=== PATIENT | male | born 1980 | race American Indian/Alaskan Native ===

== ENCOUNTER 2017-12-14 15:47 | Emergency (ER) | payer SELFPAY ==
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
--- NOTE | 2017-12-14 16:32 | CR ---
Clinic history: 37-year-old male with low back pain. Interpretation: *Abnormal appearance L5-S1 facet joint on the right and relative narrowing of the low est free L5-S1 interspace. Hypertrophic marginal arthritic spur formation around the T9-10, T11-12 and L3-4 levels (mild breanna emily T10 vertebral body). No sign of pathologic skeletal lesion, other lumbar fracture, spondylolisthesis or proximal intervert ebral disc space narrowing. Symmetric spacing normal-appearing SI and hip joints. CONCLUSION: Subtle levorotoscoliosis and abnormal appearance posterior articulating facets L5-S1 leve l, on the right. Intervertebral disc space narrowing T11-12, L3-4, and L5-S1 levels. Disc disease? Hypertrophic arthr itis noted incidentally.
[2017-12-14] MEDS ORDERED: Ketorolac 30 MG/ML SDV IM ONE (17:01)
[2017-12-14 17:35] VITALS: BP 129/75
== END 2017-12-14 17:29 | disposition home or self-care (01) ==
LOC: DL.ED 15:47
DX: M54.5 Low back pain (principal); F17.210 Nicotine dependence, cigarettes, uncomplicated
CPT/HCPCS: 72100; 99283; J1885; J2360

== ENCOUNTER 2018-04-25 14:50 | Emergency (ER) | payer OTHER ==
--- NOTE | 2018-04-25 15:14 | EDM.PDOC ---
ED HPI GENERAL MEDICAL PROBLEM - General Chief Complaint: Skin Complaint Stated Complaint: [id number] BOIL ON LT WRIST Time Seen by Provider: 04/25/18 15:14 Source of Information: Reports: Patient, Old Records, RN, RN Notes Reviewed History Limitations: Reports: No Limitations - History of Present Illness INITIAL COMMENTS - FREE TEXT/NARRATIVE: C/O abscess or boil on the left wrist. Pt reports onset of a tender, red bump several days ago after he was scratched or poked by something while cleaning out a basement. The area has progressively become more swollen, hot, and has redness spreading down the hand and up the arm. Pt reports feeling feverish yesterday, but did not measure his temperature. Denies pain or enlarged lymph node(s) in axilla. Duration: Constant, Getting Worse Location: Reports: Upper Extremity, Left Quality: Reports: Ache, Pressure Severity: Severe Improves with: Reports: None Worsens with: Reports: Movement (or palpation) Associated Symptoms: Reports: No Other Symptoms Left Wrist Pain Score (Numeric/FACES): 10 - Related Data Allergies Allergy/AdvReac Type Severity Reaction Status Date / Time No Known Allergies Allergy Verified 04/25/18 15:00 Home Meds: Home Meds . [No Known Home Meds] 02/29/16 [History] Past Medical History - Past Health History Medical/Surgical History: Denies Medical/Surgical History HEENT History: Reports: None Cardiovascular History: Reports: None Respiratory History: Reports: None Gastrointestinal History: Reports: None Genitourinary History: Reports: None Musculoskeletal History: Reports: None Neurological History: Reports: None Psychiatric History: Reports: None Endocrine/Metabolic History: Reports: None Hematologic History: Reports: None Immunologic History: Reports: None Oncologic (Cancer) History: Reports: None Dermatologic History: Reports: None - Infectious Disease History Infectious Disease History: Reports: Chicken Pox - Past Surgical History Head Surgeries/Procedures: Reports: None Social & Family History - Family History Family Medical History: Noncontributory - Tobacco Use Smoking Status *Q: Current Every Day Smoker Years of Tobacco use: 2 Packs/Tins Daily: 0.5 Second Hand Smoke Exposure: No - Caffeine Use Caffeine Use: Reports: Coffee, Soda, Tea - Recreational Drug Use Recreational Drug Use: No - Living Situation & Occupation Living situation: Reports: with Family ED ROS GENERAL - Review of Systems Review Of Systems: ROS reveals no pertinent complaints other than HPI. ED EXAM, SKIN/RASH Exam: See Below Exam Limited By: No Limitations General Appearance: Alert, WD/WN, No Apparent Distress Nose: Normal Inspection Throat/Mouth: Normal Inspection, Normal Lips, Normal Oropharynx, Normal Voice, No Airway Compromise Head: Atraumatic, Normocephalic Neck: Normal Inspection, Supple, Non-Tender, Full Range of Motion. No: Lymphadenopathy (L), Lymphadenopathy (R) Respiratory/Chest: No Respiratory Distress, Lungs Clear, Normal Breath Sounds, No Accessory Muscle Use, Chest Non-Tender Cardiovascular: Regular Rate, Rhythm Extremities: Normal Capillary Refill, Arm Pain (3cm diameter raised, acutely tender, fluctuant, non-draining abscess to left radial wrist with erythema 4.5cm distally onto dorsal hand, and 8cm proximally up the forearm), Increased Warmth (left wrist), Redness (left forearm and left dorsal hand) Neurological: Alert, Oriented, CN II-XII Intact, Normal Cognition, No Motor/ Sensory Deficits Psychiatric: Anxious ED SKIN PROCEDURES - I&D Site: left wrist Skin Prep: Chlorhexidine (Hibiciens), Saline Local Anesthesia: Lidocaine: 1% Plain Local Anesthetic Volume: Other (15cc) Area Incised With: 11 Blade Drainage: Purulent, Bloody, Large Amount Probed to Break Up Loculations: Yes Packed With: 1/4 in. Iodoform Sterile Dressinx4(s) Complications: No Course - Vital Signs Last Recorded V/S: Last Vital Signs Temp 36.0 C 04/25/18 14:55 Pulse 93 04/25/18 14:55 Resp 16 04/25/18 14:55 BP 135/73 04/25/18 14:55 Pulse Ox 100 04/25/18 14:55 - Orders/Labs/Meds Orders: Active Orders 24 hr Category Date Time Status Peripheral IV Care [RC] . DIRECTED Care 04/25/18 15:18 Active CULTURE WOUND + SMEAR [RM] Stat Lab 04/25/18 15:17 Ordered Sodium Chloride 0.9% [Saline Flush] Med 04/25/18 15:17 Active 10 ml FLUSH ASDIRECTED PRN Peripheral IV Insertion Adult [OM.PC] Stat Oth 04/25/18 15:17 Ordered Medication Orders Sodium Chloride (Saline Flush) 10 ml FLUSH ASDIRECTED PRN PRN Reason: Keep Vein Open Last Admin: 04/25/18 15:46 Dose: 10 ml Admin: 04/25/18 15:29 Dose: 10 ml Labs: Laboratory Tests 04/25/18 04/25/18 Range/Units 15:28 15:28 WBC 10.5 H (5.0-10.0) 10^3/uL RBC 4.77 (4.6-6.2) 10^6/uL Hgb 14.1 (14.0-18.0) g/dL Hct 41.7 (40.0-54.0) % MCV 87.4 (80-100) fL MCH 29.6 (27.0-34.0) pg MCHC 33.8 (33.0-35.0) g/dL Plt Count 248 (150-450) 10^3/uL Neut % (Auto) 69.1 (42.2-75.2) % Lymph % (Auto) 22.4 (20.5-50.1) % [place] % (Auto) 7.0 (2-8) % Eos % (Auto) 1.1 (1.0-3.0) % Baso % (Auto) 0.4 (0.0-1.0) % C-Reactive Protein 4.3 H (0.0-1.3) mg/dL Meds: Medications Generic Name Dose Route Start Last Admin Trade Name Leydi PRN Reason Stop Dose Admin Sodium Chloride 10 ml 04/25/18 15:17 04/25/18 15:46 Saline Flush FLUSH 10 ml ASDIRECTED PRN Administration Keep Vein Open Discontinued Medications Generic Name Dose Route Start Last Admin Trade Name Leydi PRN Reason Stop Dose Admin Diphenhydramine HCl 25 mg 04/25/18 15:19 04/25/18 15:30 Benadryl IVPUSH 04/25/18 15:20 25 mg ONETIME ONE Administration Ketorolac Tromethamine 30 mg 04/25/18 15:20 04/25/18 15:30 Toradol IVPUSH 04/25/18 15:21 30 mg ONETIME ONE Administration Lidocaine HCl 30 ml 04/25/18 15:18 04/25/18 15:30 Xylocaine-Mpf 1% INJECT 04/25/18 15:19 30 ml ONETIME ONE Administration Vancomycin HCl 1,500 mg 06/06/18 15:19 04/25/18 15:42 Vancomycin IV 04/25/18 15:20 1,500 mg ONETIME ONE Administration Departure - Departure Time of Disposition: 17:35 Disposition: Home, Self-Care 01 Condition: Good Clinical Impression: Abscess of left forearm, Cellulitis of left upper extremity - Discharge Information Instructions: Skin Abscess, [id number], Cellulitis, Adult, [id number], Incision and Drainage, Care After Referrals: PCP,None [Primary Care Provider] - Forms: ED Department Discharge Additional Instructions: Rx: Clindamycin 300mg Rx: Doxycycline 100mg Rx: Bactroban Ointment 2% Rx: Tylenol Codeine No. 3 *Do not drive or work while under the influence of this medication. Follow up in clinic in 1 to 2 days for recheck. - My Orders Last 24 Hours: My Active Orders 04/25/18 15:17 CULTURE WOUND + SMEAR [RM] Stat Sodium Chloride 0.9% [Saline Flush] 10 ml FLUSH ASDIRECTED PRN Peripheral IV Insertion Adult [OM.PC] Stat 04/25/18 15:18 Peripheral IV Care [RC] . DIRECTED - Assessment/Plan Last 24 Hours: My Active Orders 04/25/18 15:17 CULTURE WOUND + SMEAR [RM] Stat Sodium Chloride 0.9% [Saline Flush] 10 ml FLUSH ASDIRECTED PRN Peripheral IV Insertion Adult [OM.PC] Stat 04/25/18 15:18 Peripheral IV Care [RC] . DIRECTED
[2018-04-25] MEDS ORDERED: Lidocaine 1% 30 ML SDV INJECT ONE (15:18)
[2018-04-25] MEDS ORDERED: Vancomycin 500 MG SDV IV ONE (15:19)
[2018-04-25] MEDS ORDERED: diphenhydrAMINE 50 MG/ML SDV IVPUSH ONE (15:19)
[2018-04-25] MEDS ORDERED: Ketorolac 30 MG/ML SDV IVPUSH ONE (15:20)
[2018-04-25] MEDS: Sodium Chloride 0.9% 10 ML Syringe FLUSH PRN ×2 (15:29→15:46)
[2018-04-25 17:44] VITALS: BP 108/63
== END 2018-04-25 17:58 | disposition home or self-care (01) ==
LOC: DL.ED 14:50
DX: L02.414 Cutaneous abscess of left upper limb (principal); L03.114 Cellulitis of left upper limb; F17.210 Nicotine dependence, cigarettes, uncomplicated
CPT/HCPCS: 10060; 36415; 85025; 86140; 87070; 87077; 87186; 87205; 96365; 96366; 96375; 99283; J1200; J1885; J3370; J7050

== ENCOUNTER 2020-01-14 20:15 | Emergency (ER) | payer SELFPAY ==
[2020-01-14] MEDS ORDERED: Midazolam 1 MG/ML 2 ML SDV ONE (20:38)
[2020-01-14] MEDS ORDERED: Succinylcholine 200 MG/10 ML MDV IV STA (20:38)
[2020-01-14] MEDS ORDERED: Midazolam 1 MG/ML 2 ML SDV IVPUSH ONE (20:38)
[2020-01-14] MEDS ORDERED: Etomidate 2 MG/ML 20 ML SDV IVPUSH ONE (20:38)
[2020-01-14] MEDS ORDERED: Propofol 200 MG/20 ML SDV IVPUSH ONE (20:42)
[2020-01-14] MEDS ORDERED: propofoL 100 ML IV SCH (20:42)
[2020-01-14] MEDS ORDERED: Sodium Chloride 0.9% 10 ML Syringe FLUSH PRN (20:42)
[2020-01-14] MEDS ORDERED: Rocuronium 50 MG/5 ML Vial IVPUSH ONE (20:45)
[2020-01-14 20:58] VITALS: BP 124/80; PULSE 100
[2020-01-14] MEDS ORDERED: Lactated Ringers 1,000 ML IV ONE (21:02)
[2020-01-14 21:04] LABS: ANION GAP 12.5; CHLORIDE,CL 106 mmol/L (101-111); SODIUM,NA 136 mmol/L (135-145)
[2020-01-14 21:08] LABS: ACETAMINOPHEN < 10.0 ug/mL
[2020-01-14 21:09] LABS: BASE EXCESS ARTERIAL -4 mmol/L ((-2)-(+3)); BICARBONATE,ARTERIAL 22.5 mmol/L (22-26); O2 DELIVERY DEVICE VENTILATOR; O2 SATURATION ARTERIAL 98 % (95-100); PCO2 ARTERIAL 47 mmHg (35-45); PO2 ARTERIAL 113 mmHg (70-100)
[2020-01-14 21:10] LABS: ALLEN TEST PERFORMED
--- NOTE | 2020-01-14 21:10 | EDM.PDOC ---
ED HPI GENERAL MEDICAL PROBLEM - General Chief Complaint: Drug or Alcohol Abuse Stated Complaint: UNKNOWN-AMBULANCE Time Seen by Provider: 01/14/20 20:15 Source of Information: Reports: EMS - History of Present Illness INITIAL COMMENTS - FREE TEXT/NARRATIVE: she comes emergency department today by ambulance from home with a polysubstance overdose. Per the ambulance report the patient had taken his his medications at home and attempt to kill himself. The patient was alert upon arrival. Patient told EMS that he had taken his "medications" in an attempt to kill himself. The medications were obtained from the home to include quetiapine hydroxyzine tramadol Wellbutrin Suboxone. Shortly after EMS arrival the patient went unresponsive and had depressed respiratory effort. He was given 4 mg of Narcan without any improvement. He had minimal respiratory effort and had assisted respiratory ventilation in route to the hospital. He was hypoxic for a short period of time in the mid 80s until the oxygen was applied. He had never vomited. Rest of the history of present illness is unable to obtain as the patient is unresponsive upon arrival. - Related Data Allergies Allergy/AdvReac Type Severity Reaction Status Date / Time No Known Allergies Allergy Verified 01/14/20 21:05 Home Meds: Home Meds . [Unable to Verify Home Med List] 01/14/20 [History] Past Medical History - Past Health History Medical/Surgical History: Denies Medical/Surgical History HEENT History: Reports: None Cardiovascular History: Reports: None Respiratory History: Reports: None Gastrointestinal History: Reports: None Genitourinary History: Reports: None Musculoskeletal History: Reports: None Neurological History: Reports: None Psychiatric History: Reports: None Endocrine/Metabolic History: Reports: None Hematologic History: Reports: None Immunologic History: Reports: None Oncologic (Cancer) History: Reports: None Dermatologic History: Reports: None - Infectious Disease History Infectious Disease History: Reports: Chicken Pox - Past Surgical History Head Surgeries/Procedures: Reports: None Social & Family History - Family History Family Medical History: Noncontributory - Caffeine Use Caffeine Use: Reports: Coffee, Soda, Tea - Living Situation & Occupation Living situation: Reports: with Family ED ROS GENERAL - Review of Systems Review Of Systems: Unable To Obtain Reason Not Obtained: Unresponsive on arrival - Physical Exam Exam: See Below Exam Limited By: Altered Mental Status General Appearance: Lethargic, Obtunded Eye Exam: Bilateral Eye: Normal Inspection, Other (Pupils pinpoint sluggish bilaterally) Ears: Normal External Exam, Normal Canal Nose: Normal Inspection Throat/Mouth: Normal Inspection, Normal Lips Head Exam: Atraumatic, Normocephalic Neck: Normal Inspection, Supple, Non-Tender Respiratory/Chest: No Respiratory Distress, Lungs Clear, Other (Minnimal respiratory effort at aprox 3-4 breaths per minutes shallow no snoring respirations although assisted ventilation in effect upon arrival. ) Cardiovascular: Normal Peripheral Pulses, Regular Rate, Rhythm GI/Abdominal: Normal Bowel Sounds, Soft Neuro Exam (Abbreviated): Unresponsive Back Exam: Normal Inspection Extremities: Normal Inspection, Normal Capillary Refill Skin Exam: Intact, Normal Color, Diaphoretic Endotracheal Intubation - Endotracheal Intubation Time of Intubation: 20:20 ET Intubation Indication: Respiratory Failure, Airway Protection Preparation: Suction, Balloon Tested, BVM Set Up, Difficult Airway Equip Airway Assessment: Profuse Secretions Pre-Oxygenation: Assisted with BVM, 100% FiO2 Anesthesia Meds: Etomidate, Succinylcholine Placement: Orotracheal Cords Visualized: Yes ETT Size In mm: 7.5 Number of Attempts: 1 Confirmed By: CO2 Indicator, Bilateral Breath Sounds, Chest Xray Tube Secured By: By Provider Endotracheal Intubation Comment: Intubated without difficulty with direct visualization of the Et tube through the cords. Positive lung sounds bilaterally no epigastric sounds. EKG INTERPRETATION EKG Date: 01/14/20 Time: 20:55 Rhythm: NSR Rate (Beats/Min): 87 [place]: Normal P-Wave: Present QRS: Normal ST-T: Normal QT: Normal Comparison: NA - No Prior EKG Course - Vital Signs Last Recorded V/S: Last Vital Signs Temp 35.9 C L 01/14/20 20:15 Pulse 100 01/14/20 20:15 Resp 20 01/14/20 20:15 BP 124/80 01/14/20 20:15 Pulse Ox 98 01/14/20 20:15 - Orders/Labs/Meds Orders: Active Orders 24 hr Category Date Time Status EKG 12 Lead [EKG Documentation Completion] [RC] URGENT Care 01/14/20 20:42 Active Insert Urinary Catheter [OM.PC] Q24H Care 01/14/20 20:45 Ordered Peripheral IV Care [RC] . DIRECTED Care 01/14/20 20:42 Active RASS Sedation Scale [RC] ASDIRECTED Care 01/14/20 21:35 Active Urinary Catheter Assessment [RC] ASDIRECTED Care 01/14/20 20:39 Active Chest 1V Frontal [CR] Urgent Exams 01/14/20 20:38 Taken Desired Level of Sedation (RASS) [AST] Click To Edit Ot 01/14/20 21:35 Ordered NG [Nasogastric Orogastric Tube Insertion] [OM.PC] Ot 01/14/20 20:38 Ordered Routine Peripheral IV Insertion Adult [OM.PC] Stat Ot 01/14/20 20:42 Ordered Labs: Laboratory Tests 01/14/20 01/14/20 01/14/20 Range/Units 20:37 20:37 20:37 WBC 9.4 (5.0-10.0) 10^3/uL RBC 5.00 (4.6-6.2) 10^6/uL Hgb 15.4 (14.0-18.0) g/dL Hct 44.4 (40.0-54.0) % MCV 88.8 (80-100) fL MCH 30.8 (27.0-34.0) pg MCHC 34.7 (33.0-35.0) g/dL Plt Count 215 (150-450) 10^3/uL Neut % (Auto) 54.9 (42.2-75.2) % Lymph % (Auto) 35.9 (20.5-50.1) % [place] % (Auto) 7.4 (2-8) % Eos % (Auto) 1.5 (1.0-3.0) % Baso % (Auto) 0.3 (0.0-1.0) % ABG pH (7.35-7.45) ABG pCO2 (35-45) mmHg ABG pO2 (70-100) mmHg ABG HCO3 (22-26) mmol/L ABG O2 Saturation (95-100) % ABG Base Excess ((-2)-(+3)) mmol/L Jonnie Test O2 Delivery Device Sodium 136 (135-145) mmol/L Potassium 3.5 L (3.6-5.0) mmol/L Chloride 106 (101-111) mmol/L Carbon Dioxide 21.0 (21.0-31.0) mmol/L Anion Gap 12.5 BUN 15 (7-18) mg/dL Creatinine 0.8 (0.6-1.3) mg/dL Est Cr Clr Drug Dosing 137.42 mL/min Estimated GFR (MDRD) > 60 BUN/Creatinine Ratio 18.75 Glucose 109 H (74-105) mg/dL Lactic Acid 1.8 (0.5-2.0) mmol/L Calcium 8.3 L (8.4-10.2) mg/dl Total Bilirubin 0.5 (0.2-1.0) mg/dL AST 37 (10-42) IU/L ALT 64 H (10-60) IU/L Alkaline Phosphatase 59 (42-121) IU/L Total Protein 7.2 (6.7-8.2) g/dl Albumin 3.9 (3.2-5.5) g/dl Globulin 3.3 Albumin/Globulin Ratio 1.18 Urine Color (YELLOW) Urine Appearance (CLEAR) Urine pH (5.0-9.0) Ur Specific [place] (1.005-1.030) Urine Protein (NEGATIVE) Urine Glucose (UA) (NEGATIVE) Urine Ketones (NEGATIVE) Urine Occult Blood (NEGATIVE) Urine Nitrite (NEGATIVE) Urine Bilirubin (NEGATIVE) Urine Urobilinogen (0.2-1.0) mg/dL Ur Leukocyte Esterase (NEGATIVE) Salicylates < 4.0 mg/dL Urine Opiates Screen (NEGATIVE) Ur Oxycodone Screen (NEGATIVE) Urine Methadone Screen (NEGATIVE) Acetaminophen < 10.0 ug/mL Ur Barbiturates Screen (NEGATIVE) U Tricyclic Antidepress (NEGATIVE) Ur Phencyclidine Scrn (NEGATIVE) Ur Amphetamine Screen (NEGATIVE) U Methamphetamines Scrn (NEGATIVE) Urine MDMA Screen (NEGATIVE) U Benzodiazepines Scrn (NEGATIVE) Urine Cocaine Screen (NEGATIVE) U Marijuana (THC) Screen (NEGATIVE) Ethyl Alcohol 162 mg/dL 01/14/20 01/14/20 01/14/20 Range/Units 20:50 20:50 21:05 WBC (5.0-10.0) 10^3/uL RBC (4.6-6.2) 10^6/uL Hgb (14.0-18.0) g/dL Hct (40.0-54.0) % MCV (80-100) fL MCH (27.0-34.0) pg MCHC (33.0-35.0) g/dL Plt Count (150-450) 10^3/uL Neut % (Auto) (42.2-75.2) % Lymph % (Auto) (20.5-50.1) % [place] % (Auto) (2-8) % Eos % (Auto) (1.0-3.0) % Baso % (Auto) (0.0-1.0) % ABG pH 7.31 L (7.35-7.45) ABG pCO2 47 H (35-45) mmHg ABG pO2 113 H (70-100) mmHg ABG HCO3 22.5 (22-26) mmol/L ABG O2 Saturation 98 (95-100) % ABG Base Excess -4 L ((-2)-(+3)) mmol/L Jonnie Test Performed O2 Delivery Device Ventilator Sodium (135-145) mmol/L Potassium (3.6-5.0) mmol/L Chloride (101-111) mmol/L Carbon Dioxide (21.0-31.0) mmol/L Anion Gap BUN (7-18) mg/dL Creatinine (0.6-1.3) mg/dL Est Cr Clr Drug Dosing mL/min Estimated GFR (MDRD) BUN/Creatinine Ratio Glucose (74-105) mg/dL Lactic Acid (0.5-2.0) mmol/L Calcium (8.4-10.2) mg/dl Total Bilirubin (0.2-1.0) mg/dL AST (10-42) IU/L ALT (10-60) IU/L Alkaline Phosphatase (42-121) IU/L Total Protein (6.7-8.2) g/dl Albumin (3.2-5.5) g/dl Globulin Albumin/Globulin Ratio Urine Color Yellow (YELLOW) Urine Appearance Clear (CLEAR) Urine pH 5.5 (5.0-9.0) Ur Specific [place] >= 1.030 (1.005-1.030) Urine Protein Negative (NEGATIVE) Urine Glucose (UA) Negative (NEGATIVE) Urine Ketones Negative (NEGATIVE) Urine Occult Blood Negative (NEGATIVE) Urine Nitrite Negative (NEGATIVE) Urine Bilirubin Negative (NEGATIVE) Urine Urobilinogen 0.2 (0.2-1.0) mg/dL Ur Leukocyte Esterase Negative (NEGATIVE) Salicylates mg/dL Urine Opiates Screen Positive H (NEGATIVE) Ur Oxycodone Screen Positive H (NEGATIVE) Urine Methadone Screen Negative (NEGATIVE) Acetaminophen ug/mL Ur Barbiturates Screen Negative (NEGATIVE) U Tricyclic Antidepress Negative (NEGATIVE) Ur Phencyclidine Scrn Negative (NEGATIVE) Ur Amphetamine Screen Negative (NEGATIVE) U Methamphetamines Scrn Negative (NEGATIVE) Urine MDMA Screen Negative (NEGATIVE) U Benzodiazepines Scrn Negative (NEGATIVE) Urine Cocaine Screen Negative (NEGATIVE) U Marijuana (THC) Screen Negative (NEGATIVE) Ethyl Alcohol mg/dL Meds: Medications Discontinued Medications Generic Name Dose Route Start Last Admin Trade Name Freq PRN Reason Stop Dose Admin Etomidate 20 mg 01/14/20 20:38 01/14/20 20:30 Amidate IVPUSH 01/14/20 20:39 20 mg ONETIME ONE Administration Fentanyl Confirm 01/14/20 21:26 01/14/20 21:32 Sublimaze Administered 01/14/20 21:27 Not Given Dose 100 mcg .ROUTE .STK-MED ONE Fentanyl 100 mcg 01/14/20 21:32 01/14/20 21:33 Sublimaze IVPUSH 01/14/20 21:33 100 mcg ONETIME ONE Administration Lactated Ringer's 1,000 mls @ 1,000 mls/hr 01/14/20 21:02 01/14/20 21:31 Ringers, Lactated IV 01/14/20 22:01 1,000 mls/hr .BOLUS ONE Administration Propofol 100 mls @ 37.584 mls/hr 01/14/20 20:42 01/14/20 20:42 Diprivan 100 Ml IV 60 mcg/kg/min .TITRATE LISA 37.584 mls/hr Administration Protocol 60 MCG/KG/MIN Midazolam HCl Confirm 01/14/20 20:38 01/14/20 21:20 Versed 1 Mg/Ml Administered 01/14/20 20:39 Not Given Dose 4 mg .ROUTE .STK-MED ONE Midazolam HCl 4 mg 01/14/20 20:38 01/14/20 20:39 Versed 1 Mg/Ml IVPUSH 01/14/20 20:39 4 mg ONETIME ONE Administration Propofol 75 mg 01/14/20 20:42 01/14/20 20:42 Diprivan 20 Ml IVPUSH 01/14/20 20:43 75 mg ONETIME ONE Administration Rocuronium [place] 50 mg 01/14/20 20:45 01/14/20 20:45 Zemuron IVPUSH 01/14/20 20:46 50 mg ONETIME ONE Administration Sodium Chloride 10 ml 01/14/20 20:42 01/14/20 21:20 Saline Flush FLUSH 10 ml ASDIRECTED PRN Administration Keep Vein Open Succinylcholine Chloride 100 mg 01/14/20 20:38 01/14/20 20:32 Quelicin IV 01/14/20 20:39 100 mg NOW STA Administration - Re-Assessments/Exams Free Text/Narrative Re-Assessment/Exam: 01/14/20 22:38 upon arrival the patient was completely unresponsive with minimal respiratory effort. Narcan had been administered previously by EMS without improvement. The decision to RSI and intubate the patient was determined. He was given etomidate and succinylcholine through his IV. He was easily intubated with direct visualization and laryngoscopy. He was placed on the ventilator. He did eventually start a fight a little bit on the ventilator he was started on propofol drip as well as given some fentanyl. He had some labile blood pressures and was given fluid boluses with good resolution. His urine drug screen is positive for opiates and oxycodone. Rest of his laboratory evaluation is rather unremarkable. The chest x-ray has good placement of the ET tube. As well as NG tube.I called and spoke with Dr. Parker at [facility] in [place]. HPI ER course findings and concerns were relayed to him. He had no further questions or directions. He accepted the patient in transfer. We were unable to fly the patient due to weather and other concerns. He was transfered by ground ambulance on the ventilator and propofol gtt. There was no family present during the care of the patient. HE was transfer in stable condition. Departure - Departure Time of Disposition: 20:50 Disposition: DC/Tfer to Acute Hospital 02 Clinical Impression: Narcotic overdose Qualifiers: Encounter type: initial encounter Injury intent: intentional self-harm Qualified Code(s): T40.602A - Poisoning by unspecified narcotics, intentional self-harm, initial encounter Respiratory failure Qualifiers: Chronicity: acute Respiratory failure complication: unspecified whether with hypoxia or hypercapnia Qualified Code(s): J96.00 - Acute respiratory failure, unspecified whether with hypoxia or hypercapnia Polysubstance overdose Qualifiers: Encounter type: initial encounter Injury intent: intentional self-harm Qualified Code(s): T50.902A - Poisoning by unspecified drugs, medicaments and biological substances, intentional self-harm, initial encounter - Discharge Information Referrals: PCP,Unobtain [Primary Care Provider] - Forms: ED Department Discharge Critical Care Note - Critical Care Note Total Time (mins): 75 Comments: 75 minutes of direct patient care management and care for this overdose requiring intubation RSI and ventilatory support and management. This does not include separate billable or documented procedures. Sepsis Event Note - Evaluation Sepsis Screening Result: No Definite Risk - Focused Exam Vital Signs: Vital Signs Temp Pulse Resp BP Pulse Ox 01/14/20 20:15 35.9 C L 100 20 124/80 98 Date Exam was Performed: 01/14/20 Time Exam was Performed: 22:38 - My Orders Last 24 Hours: My Active Orders 01/14/20 20:38 Chest 1V Frontal [CR] Urgent NG [Nasogastric Orogastric Tube Insertion] [OM.PC] Routine 01/14/20 20:39 Urinary Catheter Assessment [RC] ASDIRECTED 01/14/20 20:42 EKG 12 Lead [EKG Documentation Completion] [RC] URGENT Peripheral IV Care [RC] . DIRECTED Peripheral IV Insertion Adult [OM.PC] Stat 01/14/20 20:45 Insert Urinary Catheter [OM.PC] Q24H 01/14/20 21:35 RASS Sedation Scale [RC] ASDIRECTED Desired Level of Sedation (RASS) [AST] Click To Edit - Assessment/Plan Last 24 Hours: My Active Orders 01/14/20 20:38 Chest 1V Frontal [CR] Urgent NG [Nasogastric Orogastric Tube Insertion] [OM.PC] Routine 01/14/20 20:39 Urinary Catheter Assessment [RC] ASDIRECTED 01/14/20 20:42 EKG 12 Lead [EKG Documentation Completion] [RC] URGENT Peripheral IV Care [RC] . DIRECTED Peripheral IV Insertion Adult [OM.PC] Stat 01/14/20 20:45 Insert Urinary Catheter [OM.PC] Q24H 01/14/20 21:35 RASS Sedation Scale [RC] ASDIRECTED Desired Level of Sedation (RASS) [AST] Click To Edit Assessment:: Polysubstance overdose Wellbutrin Suboxone and Tramadol others unsure. Respiratory failure requiring intubation and ventilatory assistance.
[2020-01-14] MEDS ORDERED: fentaNYL 100 MCG/2 ML SDV ONE (21:26)
[2020-01-14] MEDS ORDERED: fentaNYL 100 MCG/2 ML SDV IVPUSH ONE (21:32)
== END 2020-01-14 22:12 ==
LOC: DL.ED 20:15
DX: T43.592A Poisoning by other antipsychotics and neuroleptics, intentional self-harm, initial encounter (principal); T40.4X2A Poisoning by other synthetic narcotics, intentional self-harm, initial encounter; T43.292A Poisoning by other antidepressants, intentional self-harm, initial encounter; J96.00 Acute respiratory failure, unspecified whether with hypoxia or hypercapnia
CPT/HCPCS: 31500; 36415; 36600; 51702; 71045; 80053; 80305; 80307; 81003; 82803; 83605; 85025; 93005; 96360; 99282; 99291; 99292; J0330; J2250; J2704; J3010; J3490; J7120